=== PATIENT | female | born 1985 | race Caucasian/White ===

== ENCOUNTER 2018-06-20 13:24 | Emergency (ER) | payer OTHER ==
[~2018-06-20] VITALS: Ht 165.1 cm; Wt 87.9 kg
[~2018-06-20 13:24] MED LIST: FAMO20TA7 PO; IBUP-1223 PO; ONDA4TAB7 PO; OXYC-302 PO; PREN1TAB98 PO
--- NOTE | 2018-06-20 15:29 | NUR ---
BREAK RN. ASSUMED CARE OF PT AT THIS TIME FROM [facility]. 32 Y/O F PRESENTS STATING "FELL ON BLACK ICE, MY FOOT HURTS AND MY STOMACH HURTS ON RIGHT SIDE." PT IS 5 MONTHS , EDC 11/14/18, LMP 02/09/18. G2,P1,AO. ASKED PT IF SHE CAN FEEL MOVEMENTS, PT STATES "I HAVEN'T BEEN ABLE TO FEEL THEM AT ALL THIS , BUT JUST AT DOCTOR A WEEK AGO AND HEART BEAT WAS GOOD, BABY FINE ON THE ULTRASOUND." INTERMITTENT RLQ, RLQ PAIN S/P FALL. DENIES LOC OR HITTING HEAD WITH FALL. A&OX4. LLE WITH 10/10 PAIN FROM FOOT TO ANKLE. CMS INTACT, PEDAL PULSE NORMAL AND STRONG, SWELLING NOTED. SPOUSE AT BEDSIDE. VSS. CONT PULSE OX, BP MONITORS APPLIED. CALL LIGHT IN REACH. FALL PRECAUTIONS IN PLACE.
[2018-06-20 15:35] VITALS: BP 118/71
[2018-06-20] MEDS ORDERED: IRON PO (15:40)
[2018-06-20] MEDS ORDERED: FERR324T8 PO (15:41)
--- NOTE | 2018-06-20 15:42 | NUR ---
BEDSIDE REPORT AND CARE TO ANISA BRIGHT AT THIS TIME
--- NOTE | 2018-06-20 16:13 | NUR ---
HEART TONES 155 FOUND RIGHT MID ABD
--- NOTE | 2018-06-20 17:15 | NUR ---
TASK RN: DC EDUCATION PROVIDED, PT DEMONSTRATES UNDERSTANDING. PT AMBULATED STEADILY TO DC WITH RN. SO TO MEET PT IN [facility] FOR TRANSPORT HOME.
== END 2018-06-20 17:17 | disposition home or self-care (01) ==
LOC: ED 16:49
DX: O9A.212 Injury, poisoning and certain other consequences of external causes complicating pregnancy, second trimester (principal); S90.32XA Contusion of left foot, initial encounter; Z3A.20 20 weeks gestation of pregnancy; W01.0XXA Fall on same level from slipping, tripping and stumbling without subsequent striking against object, initial encounter; Y93.29 Activity, other involving ice and snow; Y92.89 Other specified places as the place of occurrence of the external cause; Y99.8 Other external cause status
CPT/HCPCS: 99283